=== PATIENT | male | born 2005 | race Caucasian/White ===

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

== ENCOUNTER 2024-08-26 12:08 | Emergency (ER) | payer OTHER ==
[~2024-08-26] VITALS: Ht 177.8 cm; Wt 72.7 kg
[~2024-08-26 12:08] MED LIST: AMOXICILLIN 8751 TAB PO; MONODOX100 PO; PRILOSEC 20MG20 MG PO; ZOFRAN ODT4 MG PO
[2024-08-26 12:13] VITALS: TEMP 97.6
[2024-08-26] MEDS ORDERED: Ketorolac 15 MG/ML VIAL IV ONE (15:00)
[2024-08-26 15:45] LABS: BASO # 0.1 K/mm3 (0.0-0.2); BASO % 0.7 % (0.0-2.0); EOS # 0.1 K/mm3 (0.0-0.7); EOS % 1.1 % (0.0-4.0); GRAN # 4.5 K/mm3 (1.4-6.5); GRAN % 60.9 % (42.2-75.2); HEMATOCRIT 48.1 % (42.0-52.0); HEMOGLOBIN 16.9 g/dl (13.5-18.0); LYMPH # 2.2 K/mm3 (1.2-3.4); LYMPH % 29.4 % (20.0-51.0); MEAN CELL VOLUME 89 fl (80.0-100.0); MEAN CORPUSCULAR HEMOGLOBIN 31 pg (27-31); MEAN CORPUSCULAR HGB CONC 35 g/dl (33.0-37.0); MEAN PLATELET VOLUME 8.7 fl (7.4-10.4); MONO # 0.6 K/mm3 (0.1-0.6); MONO % 7.5 % (1.7-9.3); PLATELET COUNT 365 K/mm3 (130-400); RED BLOOD COUNT 5.41 M/mm3 (4.20-5.60)
[2024-08-26 15:55] LABS: INR 1.1 (0.8-3.0); PARTIAL THROMBOPLASTIN TIME 34.3 SECONDS (26.0-37.0); PROTHROMBIN TIME 12.4 SECONDS (9.7-12.8)
[2024-08-26 16:01] LABS: ALBUMIN 4.7 g/dL (3.5-5.0); BILIRUBIN,TOTAL 0.8 mg/dL (0.2-1.2); C-REACTIVE PROTEIN 0.03 mg/dL (0.00-0.50); CALCIUM 10.1 mg/dL (8.4-10.2); CREATININE, serum 1.18 mg/dL (0.72-1.25); POTASSIUM 3.7 mEq/L (3.5-4.5); TOTAL PROTEIN 7.7 g/dl (6.2-8.1)
[2024-08-26 16:06] LABS: TROPONIN-I 0.012 ng/mL (0.00-0.033)
[2024-08-26 16:51] VITALS: BP 124/77; PULSE 58
== END 2024-08-26 16:51 | disposition home or self-care (01) ==
LOC: COL.ER 12:08
PROVIDERS: Emergency Medicine
DX: R07.89 Other chest pain (principal)
CPT/HCPCS: J1885